=== PATIENT | male | born 2000 | race Caucasian/White ===

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

== ENCOUNTER 2023-03-14 15:08 | Emergency (ER) | payer OTHER ==
[~2023-03-14] VITALS: Ht 170.2 cm; Wt 67.1 kg
[2023-03-14 15:13] VITALS: BP 138/82
[2023-03-14 16:05] LABS: Influenza A, PCR NEGATIVE (NEGATIVE); Influenza B, PCR NEGATIVE (NEGATIVE); Resp Syncytial Virus, PCR NEGATIVE (NEGATIVE); SARS-Cov-2 (COVID-19) PCR, MMC NEGATIVE (NEGATIVE)
== END 2023-03-14 16:57 | disposition home or self-care (01) ==
LOC: ER 15:08
PROVIDERS: Student in an Organized Health Care Education/Training Program
DX: B34.9 Viral infection, unspecified (principal); F90.9 Attention-deficit hyperactivity disorder, unspecified type; Z11.52 Encounter for screening for COVID-19; Z88.3 Allergy status to other anti-infective agents; Z91.010 Allergy to peanuts; Z79.899 Other long term (current) drug therapy
CPT/HCPCS: 0241U; 99283

== ENCOUNTER 2023-04-13 13:49 | Emergency (ER) | payer OTHER ==
[~2023-04-13] VITALS: Ht 165.1 cm; Wt 67.1 kg
[2023-04-13 13:56] VITALS: BP 132/83
[2023-04-13 14:43] LABS: Influenza A, PCR NEGATIVE (NEGATIVE); Influenza B, PCR NEGATIVE (NEGATIVE); Resp Syncytial Virus, PCR NEGATIVE (NEGATIVE); SARS-Cov-2 (COVID-19) PCR, MMC NEGATIVE (NEGATIVE)
== END 2023-04-13 15:16 | disposition home or self-care (01) ==
LOC: ER 13:49
PROVIDERS: Student in an Organized Health Care Education/Training Program
DX: J98.8 Other specified respiratory disorders (principal); B97.89 Other viral agents as the cause of diseases classified elsewhere; M25.522 Pain in left elbow; F90.9 Attention-deficit hyperactivity disorder, unspecified type; Z11.52 Encounter for screening for COVID-19; Z88.1 Allergy status to other antibiotic agents; Z91.010 Allergy to peanuts; Z79.899 Other long term (current) drug therapy
CPT/HCPCS: 0241U; 99283

== ENCOUNTER 2024-03-10 12:01 | Observation (INO) | payer OTHER ==
[~2024-03-10] VITALS: Ht 172.7 cm; Wt 74.8 kg
[2024-03-10] MEDS ORDERED: OLANZapine ODT 5 MG Tab MM ONE (12:35)
[2024-03-10 12:56] LABS: BASOPHILS ABSOLUTE AUTO 0.03 K/mm3 (0.00-0.23); BASOPHILS PERCENT AUTO 1 % (0-2); EOSINOPHILS ABSOLUTE AUTO 0.09 K/mm3 (0.00-0.68); EOSINOPHILS PERCENT AUTO 2 % (0-6); Hemoglobin 14.7 g/dL (13.5-17.5); IMMATURE GRAN ABSOLUTE AUTO 0.01 K/mm3 (0.00-0.10); IMMATURE GRAN PERCENT AUTO 0 % (0-1); LYMPHOCYTES ABSOLUTE AUTO 1.92 K/mm3 (0.84-5.20); LYMPHOCYTES PERCENT AUTO 35 % (21-46); MONOCYTES ABSOLUTE AUTO 0.48 K/mm3 (0.16-1.47); MONOCYTES PERCENT AUTO 9 % (4-13); Mean Corpuscular HGB 29.6 pg (26.0-34.0); Mean Corpuscular HGB Conc 33.4 g/dL (31.5-36.5); Mean Corpuscular Volume 89 fL (80-100); Mean Platelet Volume 9.2 fL (9.1-12.4); NEUTROPHILS ABSOLUTE AUTO 3.02 K/mm3 (1.96-9.15); NEUTROPHILS PERCENT AUTO 55 % (41-73); Platelet Count 316 K/mm3 (150-400); RDW Coefficient Variation 12.6 % (11.7-14.2); RDW Standard Deviation 41.2 fL (35.1-46.3); Red Blood Cell Count 4.96 M/mm3 (4.30-5.90); White Blood Cell Count 5.55 K/mm3 (4.00-11.30)
[2024-03-10 13:01] LABS: Source, Urine Clean Catch
[2024-03-10 13:05] LABS: Appearance, Urine Clear (Clear); Bilirubin, Urine Neg (Neg); Blood, Urine Neg (Neg); Color, Urine Yellow (P-Yellow); Glucose Qualitative, Urine Neg (Neg); Ketones, Urine Neg (Neg); Leukocyte Esterase, Urine Neg (Neg); Nitrite, Urine Neg (Neg); Protein, Urine Neg (Neg); Urobilinogen, Urine NORM (Normal); pH, Urine 6.5 (5.0-8.0)
[2024-03-10 13:17] LABS: U Amphetamine Screen Not Detected; U Barbituate Screen Not Detected; U Benzodiazapine Screen Not Detected; U Buprenorphine Screen Not Detected; U Cannabinoids Screen DETECTED; U Cocaine Screen Not Detected; U Methadone Screen Not Detected; U Methamphetamine Screen Not Detected; U Opiates Screen Not Detected; U Oxycodone Screen Not Detected; U Phencyclidine Screen Not Detected
[2024-03-10 13:20] LABS: Ethanol (Alcohol), Blood, Med <3 mg/dL; Salicylate <1.7 mg/dL (2.8-20.0)
[2024-03-10 13:46] LABS: Acetaminophen, Random <2.0 ug/mL (10.0-30.0); Alanine Aminotransfer (ALT/SGP 23 U/L (12-78); Albumin/Globulin Ratio 1.1 (0.8-1.8); Alk Phos 102 U/L (50-136); Anion Gap 9 mmol/L (3-11); Aspartate Aminotrans (AST/SGOT 19 U/L (12-37); Bilirubin, Total 0.3 mg/dL (0.1-1.0); Blood Urea Nitrogen 13 mg/dL (8-24); Bun/Creatinine Ratio 12.1 (12.0-20.0); CO2, Blood 28 mmol/L (21-32); Calcium, Blood 8.9 mg/dL (8.5-10.1); Chloride, Blood 103 mmol/L (98-108); Creatinine, Blood 1.07 mg/dL (0.60-1.20); Globulin, Blood 3.5 g/dL (2.2-4.0); Glomerular Filtration Rate 100 (60-); Glucose, Blood 121 mg/dL (70-99); Sodium, Blood 136 mmol/L (136-145); Total Protein, Blood 7.5 g/dL (6.4-8.2)
[2024-03-10] MEDS ORDERED: ABILIFY MYCITE5 M2 PO (15:47)
[2024-03-10 16:10] VITALS: BP 128/68
== END 2024-03-10 16:12 | disposition home or self-care (01) ==
LOC: ER 12:01 → EOR 12:02
PROVIDERS: ADMIT Student in an Organized Health Care Education/Training Program
DX: F39 Unspecified mood [affective] disorder (principal); F32.9 Major depressive disorder, single episode, unspecified; F90.9 Attention-deficit hyperactivity disorder, unspecified type; F17.210 Nicotine dependence, cigarettes, uncomplicated; R44.1 Visual hallucinations; R44.0 Auditory hallucinations; Z88.8 Allergy status to other drugs, medicaments and biological substances; Z91.010 Allergy to peanuts
CPT/HCPCS: 80053; 80320; 81003; 85025; 93005; 93010; 99285-25; A9270; G0378; G0480

== ENCOUNTER 2024-04-20 08:29 | Emergency (ER) | payer OTHER ==
[~2024-04-20] VITALS: Ht 167.6 cm; Wt 57.6 kg
[~2024-04-20 08:29] MED LIST changes: +ABILIFY MYCITE5 M2 PO
[2024-04-20 08:45] VITALS: BP 131/91
[2024-04-20] MEDS ORDERED: Pantoprazole Sodium 40 MG Injection IV ONE (09:25)
[2024-04-20] MEDS ORDERED: FentaNYL Citrate 50 MCG/ML 2 ML Injection IV ONE (09:25)
[2024-04-20] MEDS ORDERED: ABILIFY MYCITE5 M2 PO (09:30)
== END 2024-04-20 09:35 | disposition home or self-care (01) ==
LOC: ER 08:29
DX: Z76.0 Encounter for issue of repeat prescription (principal); F90.9 Attention-deficit hyperactivity disorder, unspecified type; F17.210 Nicotine dependence, cigarettes, uncomplicated; Z88.1 Allergy status to other antibiotic agents; Z91.010 Allergy to peanuts; Z79.899 Other long term (current) drug therapy
CPT/HCPCS: 99281